=== PATIENT | female | born 1995 | race Caucasian/White ===

== ENCOUNTER 2019-05-09 10:47 | Emergency (ER) | payer OTHER ==
[2019-05-09 10:53] VITALS: BMI 32.5
[2019-05-09] MEDS ORDERED: LACTATED RINGERS SOLUTION 1000 ML INFUS.BAG IV ONE (11:21)
[2019-05-09] MEDS ORDERED: ACETAMINOPHEN 500 MG TABLET (FP) PO ONE (11:43)
--- NOTE | 2019-05-09 11:43 | PDOC ---
History of Present Illness - General History Source: Patient Exam Limitations: No Limitations - History of Present Illness Initial Comments: HPI: 23 y/o female presenting to [facility] ER complaining of lower abdominal and back pain for the past two days with recent fevers. Pain is described as intermittent and diffusely crampy. Right lower quadrant is more dull, while left lower quadrant is more sharp. Tmax 100.9 measured this morning. Further endorsing vaginal discharge change from clear to yellow yesterday. Pt is 14 weeks . Reports decreased movement over the past two days. Normal course to date. Normal ultrasound obtained 4 weeks ago. Follows with BRITTANY Luo for care. Pt is sexually active with single partner. Reports monogamous relationship. Feels safe at home and in relationship. OBGYN Hx: - A1, last complicated by preeclampsia diagnosed at 41 weeks - H/o of Chlamydia 4 years ago, reports receiving treatment - Denies abnormal PAP smear, last 4 weeks ago Medical Hx: - Mild intermittent asthma Surgical Hx: - Pt denies past surgical history. Review of Systems: In addition to that documented in the HPI above, the additional ROS was obtained : Constitutional: Endorses fevers. Denies diaphoresis or chills Head: Denies vision changes ENMT: Denies sore throat CV: Denies chest pain Resp: Denies SOB GI: Denies vomiting or diarrhea : Denies painful urination or hematuria MSK: Denies recent trauma Skin: Denies new rashes Neuro: Denies new numbness or tingling or weakness Endocrine: Denies polyuria Heme: Denies bleeding or bruising Physical Examination: Constitutional: Well-developed, well-nourished adult female in no acute distress but mild obvious discomfort. Found semi-fowlers on hospital bed. Alert and oriented x4. Answered all questions appropriately and completely. Speech was non-labored, non-pressured. Cardiovascular / Chest: Tachycardic rate with regular rhythm. No murmur, rubs, clicks, or gallops. Peripheral pulses: radial pulses full. No pretibial edema. Respiratory: Breathing unlabored. Equal chest rise and fall. Clear to auscultation bilaterally. No stridor, no wheezing, no rhonchi. Gastrointestinal: abdomen is tender in LLQ and RLQ without rebound or guarding. Globally, abdomen is soft and non-distended. No hepatosplenemegaly. No overlying skin lesions or obvious signs of trauma. Neuro: Alert and oriented. Moving all four extremities spontaneously. Gait normal. Skin: Warm, dry, and intact. : No R or L CVA tenderness. Psych: Affect: appropriate. Mood: normal. Female Pelvic: External genitalia unremarkable. Speculum exam with normal appearing whitish vaginal discharge. Vaginal wall mucosa is unremarkable. Cervix visualized and is unremarkable (closed in appearance without any protruding material). Bimanual exam with mild cervical motion tenderness (no chandelier sign), adnexal tenderness or any masses appreciated. Female MD chaperoned exam. MDM: *Reviewed vital signs, nursing notes, and prior visit documentation (if available). 23 y/o female at 14 weeks gestation presenting with fevers and abdominal pain x2 days. Afebrile in triage. Vitals remarkable for mild tachycardia without hypotension. HR improved after receiving PO Tylenol. Physical exam as described above. CBC unremarkable for leukocytosis. UA unremarkable for pyuria, nitrites, or leukocyte esterase. Urine culture, trichomoniasis, gonorrhea, and chlamydia amplification pending. Cervical culture pending. U/S revealed single IUP with HR of 150. Pt reported to ED attending that multiple members of her household were sick with URI symptoms, which she then endorsed. Suspect likely viral URI. Discussed imaging and laboratory results with pt. Answered all questions. Provided return precautions. Pt expressed verbal understanding and agreement with plan to discharge home with outpatient follow up tomorrow with weighmaster lead. Provided copies of todays results. Bertram Andres M.D., PGY2 Emergency Medicine Resident <Bertram Andres - Last Filed: 05/09/19 14:01> <Cecilio Montano - Last Filed: 05/09/19 16:42> - General Chief Complaint: Pain, Acute Stated Complaint: SIXTEEN WK AK/FEVER Time Seen by Provider: 05/09/19 11:07 Past History - Past Medical History Asthma: Yes COPD: No - Reproductive History Is Patient Now?: Yes (16 weeks) (#): 4 Para: 2 Therapeutic (s) & number: Yes (1) - Immunization History Immunization Up to Date: Yes - Suicide/Smoking/Psychosocial Hx Smoking History: Never smoked Hx Alcohol Use: No Drug/Substance Use Hx: No <Bertram Andres - Last Filed: 05/09/19 14:01> <Cecilio Montano - Last Filed: 05/09/19 16:42> - Past Medical History Allergies/Adverse Reactions: Allergies Allergy/AdvReac Type Severity Reaction Status Date / Time ceftriaxone [From Rocephin] Allergy Verified 05/09/19 10:50 vancomycin AdvReac Verified 05/09/19 10:50 Home Medications: Ambulatory Orders Pnv No.121/Iron/Folic Acid [ Multivitamin Tablet] 1 tab PO DAILY *Physical Exam - Vital Signs Last Vital Signs Temp Pulse Resp BP Pulse Ox 98.7 F 120 H 18 126/74 96 05/09/19 10:51 05/09/19 10:51 05/09/19 10:51 05/09/19 10:51 05/09/19 10:51 <Bertram Andres - Last Filed: 05/09/19 14:01> - Vital Signs Last Vital Signs Temp Pulse Resp BP Pulse Ox 99.8 F H 106 H 19 120/76 99 05/09/19 12:56 05/09/19 13:01 05/09/19 13:01 05/09/19 13:01 05/09/19 13:01 <Cecilio Montano - Last Filed: 05/09/19 16:42> ED Treatment Course - LABORATORY CBC & Chemistry Diagram: 05/09/19 11:36 05/09/19 11:36 - RADIOLOGY Radiology Studies Ordered: Category Date Time Status US(SINGLE) [US] Stat Ultrasound 05/09/19 11:20 Ordered <Bertram Andres - Last Filed: 05/09/19 14:01> - LABORATORY CBC & Chemistry Diagram: 05/09/19 11:36 05/09/19 11:36 - ADDITIONAL ORDERS Additional order review: Laboratory Results 05/09/19 05/09/19 05/09/19 11:36 11:36 11:36 Sodium 141 Potassium 3.8 Chloride 110 H Carbon Dioxide 22 Anion Gap 9 BUN 4.6 L Creatinine 0.4 L Est GFR (CKD-EPI)AfAm 170.15 Est GFR (CKD-EPI)NonAf 146.81 Random Glucose 80 Calcium 8.1 L Total Bilirubin 0.2 AST 16 ALT 15 Alkaline Phosphatase 78 Total Protein 6.6 Albumin 2.8 L Beta HCG, Quant 19492.9 Urine Color Yellow Urine Appearance Clear Urine pH 6.5 Ur Specific [place] 1.018 Urine Protein Negative Urine Glucose (UA) Negative Urine Ketones Negative Urine Blood Negative Urine Nitrite Negative Urine Bilirubin Negative Urine Urobilinogen 1.0 Ur Leukocyte Esterase Negative 05/09/19 11:36 RBC 4.22 MCV 78.2 L MCHC 33.7 RDW 15.6 MPV 9.4 Neutrophils % 77.3 Lymphocytes % 14.3 Monocytes % 7.6 Eosinophils % 0.4 Basophils % 0.4 - Medications Given in the ED: ED Medications Discontinued Medications Generic Name Dose Route Start Last Admin Trade Name Sadia PRN Reason Stop Dose Admin Acetaminophen 650 mg 05/09/19 11:43 05/09/19 11:58 Tylenol - PO 05/09/19 11:44 650 mg ONCE ONE Administration Lactated Ringer's 1,000 ml 05/09/19 11:21 05/09/19 11:58 Lactated Ringers Solution IV 05/09/19 11:22 1,000 ml ONCE ONE Administration <Cecilio Montano - Last Filed: 05/09/19 16:42> *DC/Admit/Observation/Transfer - Discharge Dispostion Decision to Admit order: No <Bertram Andres - Last Filed: 05/09/19 14:01> <Cecilio Montano - Last Filed: 05/09/19 16:42> Diagnosis at time of Disposition: Left lower quadrant abdominal pain affecting in first trimester Fever Qualifiers: Fever type: unspecified Qualified Code(s): R50.9 - Fever, unspecified - Discharge Dispostion Disposition: HOME Condition at time of disposition: Improved - Referrals Referrals: Kiera Muñoz DO [Primary Care Provider] - Mayra Luo CNM [Certified Nurse Speeder Operator] - - Patient Instructions Printed Discharge Instructions: DI for Fever (Symptom) -- Adult Additional Instructions: You were seen today for a fever and abdominal pain. Your baby looks perfectly healthy on ultrasound. Your blood work and urine tests were normal today. The last urine test will take a few days to result. The hospital will call you if the test is positive. Your symptoms today are likely caused by a viral illness. You can take over the counter Tylenol as needed for pain. Take as directed on the package insert. Do not exceed the recommended dosage. Follow up with your OBGYN tomorrow at the previously scheduled appointment. A copy of todays results are attached to this packet. Take it to the appointment so your doctor can review them. Go to the nearest emergency department if your condition worsens or you feel like you need additional emergency evaluation. Print Language: CITIZEN OF [place] - Post Discharge Activity Forms/Work/School Notes: Back to Work
[2019-05-09] MEDS ORDERED: ACETAMINOPHEN 325 MG TABLET (FP) ONE (11:54)
--- NOTE | 2019-05-09 12:09 | PDOC ---
Attending Attestation - Resident Resident Name: Bertram Andres - ED Attending Attestation I have performed the following: I have examined & evaluated the patient, The case was reviewed & discussed with the resident, I agree w/resident's findings & plan, Exceptions are as noted
[2019-05-09 12:33] LABS: BASO % 0.4 % (0-2.0); EOS % 0.4 % (0-4.5); HEMOGLOBIN 11.1 GM/dL (10.7-15.3); LYMPH % 14.3 % (8-40); MCH 26.4 pg (25.7-33.7); MCHC 33.7 g/dl (32.0-36.0); MEAN CELL VOLUME 78.2 fl (80-96); MEAN PLT VOLUME 9.4 fl (7.5-11.1); MONO % 7.6 % (3.8-10.2); NEUT % 77.3 % (42.8-82.8); PLATELET COUNT 210 K/MM3 (134-434); RBC 4.22 M/mm3 (3.60-5.2); RDW 15.6 % (11.6-15.6); WHITE BLOOD COUNT 5.5 K/mm3 (4.0-10.0)
[2019-05-09 12:50] LABS: ALBUMIN 2.8 g/dl (3.4-5.0); BILIRUBIN,TOTAL 0.2 mg/dL (0.2-1); BLOOD UREA NITROGEN 4.6 mg/dL (7-18); CALCIUM 8.1 mg/dL (8.5-10.1); CREATININE 0.4 mg/dL (0.55-1.3); PH,URINE 6.5 (5.0-8.0); POTASSIUM 3.8 mmol/L (3.5-5.1); TOT PROT 6.6 g/dl (6.4-8.2); URINE APPEARANCE CLEAR; URINE BILIRUBIN NEGATIVE (NEGATIVE); URINE COLOR YELLOW; URINE GLUCOSE (UA) NEGATIVE (NEGATIVE); URINE KETONE NEGATIVE (NEGATIVE); URINE LEUK ESTERASE NEGATIVE (NEGATIVE); URINE NITRITE NEGATIVE (NEGATIVE); URINE PROTEIN NEGATIVE (NEGATIVE)
[2019-05-09 12:56] VITALS: TEMP 99.8
[2019-05-09 13:01] VITALS: BP 120/76; PULSE 106
--- NOTE | 2019-05-09 16:45 | PDOC ---
Documentation entered by Lindsay Domingo SCRIBE, acting as scribe for Cecilio Montano MD. Cecilio Montano MD: This documentation has been prepared by the Jose L bedoya Renju, SCRIBE, under my direction and personally reviewed by me in its entirety. I confirm that the documentation accurately reflects all work, treatment, procedures, and medical decision making performed by me. Attending Attestation - Resident Resident Name: Bertram - ED Attending Attestation I have performed the following: I have examined & evaluated the patient, The case was reviewed & discussed with the resident, I agree w/resident's findings & plan, Exceptions are as noted - HPI HPI: 05/09/19 14:23 The patient is a 23 year old A1 female who presents to the emergency department for evaluation of a 2 day history of rhinorrhea, cough, and fever. Patient states her youngest son was diagnosed with pneumonia last week and similar symptoms of rhinorrhea and fever. Patient reports a fever with tmax of 100.9 last night. She states her other son had a fever last week as well. Denies recent travel. Patient reports intermittent lower abdominal pain which she describes as a pressure. She states she has an OBGYN appointment next week. Patient states she is in a monogamous relationship. Denies chest pain, shortness of breath, headache, and dizziness. Denies fevers, chills, nausea, and vomiting. Allergies: Ceftriaxone, vancomycin Social History: No reported alcohol, cigarette, or drug use. - Physicial Exam PE: 05/09/19 14:23 ROS: A complete review of 10 out of 10 review of systems is taken and is negative apart from what is previously mentioned below and in the HPI. Physical Exam: Vitals: Triage Vital signs reviewed General Appearance: no acute distress, well nourished well developed, Head: Atraumatic, Eyes: Pupils equal reactive round, extraocular movement intact Neck: Supple; Chest Wall: Nontender Cardiac: Regular rate and rhythm, no murmurs, no rubs, no gallops, Lungs: Clear to auscultation bilaterally, good air movement bilaterally, Abdomen: Soft, non distended, normal bowel sounds, non tender to palpation Extremities: Full range of motion to all extremities, no cyanosis, clubbing, or edema Skin: Warm and dry, no rashes or lesions, no rash, no petechiae Neuro: Strength intact to all extremities, Sensation intact to all extremities, gait normal Psych: normal mood, normal affect - Medical Decision Making 05/09/19 16:45 23 years old with fever 2 days. Both the for children were sick at home with similar illnesses she has had some crampy lower abdominal discomfort for 2 days comes and goes intermittent not constant Her urinalysis was unremarkable. She had no elevated white blood cell count no shift. Her physical examination was unremarkable she had no rebound or guarding and no pain on my abdominal examination Given that her children have had the exact same febrile illness she does endorse runny nose and coughing this is most likely viral illness my suspicion for an acute surgical intra-abdominal process at this time given normal abdominal examination normal pelvic examination is low however we did discuss very strict abdominal pain return instructions. She'll return to ED for any severe persistent constant abdominal pain or for any concerns otherwise she has a follow-up appointment tomorrow with her ASSISTANT PROFESSOR OF FORESTRY. Findings, the need for follow-up and strict return instructions discussed with patient.
== END 2019-05-09 13:42 | disposition home or self-care (01) ==
LOC: JER 10:47
DX: O26.892 Other specified pregnancy related conditions, second trimester (principal); R50.9 Fever, unspecified; R10.32 Left lower quadrant pain; Z3A.16 16 weeks gestation of pregnancy
CPT/HCPCS: 36415; 76801-TC; 80053; 81003; 84702; 85025; 87086; 87491; 87591; 87661; 99283-25

== ENCOUNTER → 2019-05-29 | Day surgery (SDC) | payer OTHER ==
--- NOTE | 2019-05-30 16:12 | PATH ---
Surgical Pathology Report Patient Name: ANNA CHURCH [facility]. Rec. #: [id number] /Age/Gender: 1995 (Age: 23) / F Account: [id number] Location: Taken: 05/29/2019 Received: 05/29/2019 Reported: 05/30/2019 Physicians: Consuelo Ruiz M.D. Specimen(s) Received BREAST CORE BIOPSY LEFT 11:00 RETRO Clinical History Palpable mass Postoperative diagnosis: Probably benign, suspicious Final Diagnosis LEFT BREAST, 11:00 RETRO, 1.6 CM MASS, ULTRASOUND GUIDED BIOPSY: BENIGN BREAST TISSUE WITH SECRETORY CHANGE. Electronically Signed Belen Salmeron M.D. Gross Description Received in formalin labeled "left 11:00 retro," are 5 goode-yellow, cylindrical portions of fibroadipose tissue ranging from 0.3-1.3 cm in length and averaging 0.1 cm in diameter. The specimens are submitted in toto in one cassette. Time to formalin fixation: Less than one minute Total formalin fixation time: Approximately 6 hours. /05/29/2019 [facility]
== END | disposition home or self-care (01) ==
LOC: JMAMMO-SUR 12:10
PROVIDERS: ATTEND Midwife
PROC: 0HBU3ZX Excision of Left Breast, Percutaneous Approach, Diagnostic (ICD-10-PCS; principal; 2019-05-29)
DX: O92.29 Other disorders of breast associated with pregnancy and the puerperium (principal); D24.2 Benign neoplasm of left breast; Z3A.19 19 weeks gestation of pregnancy
CPT/HCPCS: 19083; 87899; 88305-TC; A4648

== ENCOUNTER 2019-09-09 10:40 | Emergency (ER) | payer OTHER ==
[2019-09-09 10:51] VITALS: BP 113/63; PULSE 110; TEMP 98.1; BMI 36.2
[2019-09-09] MEDS ORDERED: diphenhydrAMINE HCL 25 MG CAPSULE (FP) PO ONE ×2 (11:32→12:41)
[2019-09-09] MEDS ORDERED: ACETAMINOPHEN 500 MG TABLET (FP) PO ONE (11:32)
[2019-09-09] MEDS ORDERED: guaiFENesin 200 MG/10 ML 10 ML UNIT-DOSE CUPS PO ONE (11:33)
[2019-09-09] MEDS ORDERED: ACETAMINOPHEN 325 MG TABLET (FP) ONE (12:41)
[2019-09-09] MEDS ORDERED: guaiFENesin 200 MG/10 ML 10 ML UNIT-DOSE CUPS ONE (12:41)
--- NOTE | 2019-09-09 12:51 | PDOC ---
History of Present Illness - General History Source: Patient Exam Limitations: No Limitations - History of Present Illness Initial Comments: 09/09/19 11:46 23-year-old female presents to ED with complaints of nasal congestion, headache , sore throat and cough. Patient states has taken nothing for the above and decided come to the ER for evaluation since she is currently 34 weeks and has history of preeclampsia. Patient has no complaints of abdominal pain, back pain, urinary complaints or vaginal discharge. Is this a multiple visit Asthma Patient?: No Timing/Duration: 24 hours Severity: mild Associated Symptoms: reports: cough, headaches, loss of appetite. denies: fever /chills, malaise, nausea/vomiting, rash, weakness <Adriana Jacob - Last Filed: 09/09/19 13:20> <Makenzie Jean Baptiste - Last Filed: 09/09/19 16:00> - General Chief Complaint: Pain Stated Complaint: COLD SYMPTOMS Time Seen by Provider: 09/09/19 11:26 Past History - Travel Traveled outside of the country in the last 30 days: No Close contact w/someone who was outside of country & ill: No - Past Medical History Asthma: Yes COPD: No Other medical history: pre eclampsia - Reproductive History (#): 4 Para: 2 Therapeutic (s) & number: Yes (1) - Immunization History Immunization Up to Date: Yes - Psycho Social/Smoking Cessation Hx Smoking History: Never smoked Hx Alcohol Use: No Drug/Substance Use Hx: No Patient Lives Alone: No Lives with/in: spouse/SO <Adriana Jacob - Last Filed: 09/09/19 13:20> <Makenzie Jean Baptiste - Last Filed: 09/09/19 16:00> - Past Medical History Allergies/Adverse Reactions: Allergies Allergy/AdvReac Type Severity Reaction Status Date / Time ceftriaxone [From Rocephin] Allergy Verified 09/09/19 10:47 vancomycin AdvReac Verified 09/09/19 10:47 Home Medications: Ambulatory Orders Pnv No.121/Iron/Folic Acid [ Multivitamin Tablet] 1 tab PO DAILY Acetaminophen [Tylenol -] 1,000 mg PO TID PRN #30 tablet 09/09/19 Diphenhydramine HCl [Benadryl -] 25 mg PO Q8H PRN #21 capsule 09/09/19 Guaifenesin [Robitussin] 10 ml PO TID PRN #120 ml 09/09/19 Review of Systems - Review of Systems Able to Perform ROS?: No Is the patient limited [place] proficient: No Constitutional: No: Symptoms Reported HEENTM: Yes: Nose Congestion, Throat Pain Respiratory: Yes: Cough. No: Shortness of Breath Cardiac (ROS): No: Symptoms Reported ABD/GI: No: Symptoms Reported : No: Symptoms Reported Musculoskeletal: No: Symptoms Reported Integumentary: No: Symptoms Reported Neurological: Yes: Headache. No: Tingling, Tremors, Weakness, Dizziness Endocrine: No: Symptoms Reported Hematologic/Lymphatic: No: Symptoms Reported <Adriana Jacob - Last Filed: 09/09/19 13:20> *Physical Exam - Vital Signs Last Vital Signs Temp Pulse Resp BP Pulse Ox 98.1 F 110 H 18 113/63 97 09/09/19 10:47 09/09/19 10:47 09/09/19 10:47 09/09/19 10:47 09/09/19 10:47 - Physical Exam General Appearance: Yes: Nourished, Appropriately Dressed. No: Apparent Distress HEENT: positive: Nasal Congestion, Sinus Tenderness (maxillary). negative: Pale Conjunctivae, Rhinorrhea Neck: positive: Supple Respiratory/Chest: positive: Lungs Clear, Normal Breath Sounds. negative: Respiratory Distress, Accessory Muscle Use, Wheezing Gastrointestinal/Abdominal: positive: Soft. negative: Tenderness Integumentary: positive: Normal Color, Warm, Moist Neurologic: positive: Motor Strength 5/5 (ambulatory) <Adriana Jacob - Last Filed: 09/09/19 13:20> - Vital Signs Last Vital Signs Temp Pulse Resp BP Pulse Ox 98.1 F 110 H 18 113/63 97 09/09/19 10:47 09/09/19 10:47 09/09/19 10:47 09/09/19 10:47 09/09/19 10:47 <Makenzie Jean Baptiste - Last Filed: 09/09/19 16:00> ED Treatment Course - Medications Given in the ED: ED Medications Discontinued Medications Generic Name Dose Route Start Last Admin Trade Name Freq PRN Reason Stop Dose Admin Acetaminophen 975 mg 09/09/19 11:32 09/09/19 12:52 Tylenol - PO 09/09/19 11:33 975 mg ONCE ONE Administration Diphenhydramine HCl 25 mg 09/09/19 11:32 09/09/19 12:53 Benadryl - PO 09/09/19 11:33 25 mg ONCE ONE Administration Guaifenesin 10 ml 09/09/19 11:33 09/09/19 12:52 Robitussin - PO 09/09/19 11:34 10 ml ONCE ONE Administration <Makenzie Jean Baptiste - Last Filed: 09/09/19 16:00> Medical Decision Making - Medical Decision Making 09/09/19 12:00 Chief complaint: Patient with nasal congestion, headache, sore throat and cough for the past day. Patient took no medications and was concerned since she is 34 weeks and has history of preeclampsia. Patient has no complaints of lower extremity edema, chest pain, shortness of breath, or a recorded elevated BP reading for this Exam: Patient noted nasal congestion maxillary tenderness,. Lungs clear to auscultation vital signs stable except for slightly tachycardic. Patient states has had poor p.o. fluid intake Plan: Robitussin, Tylenol, Benadryl along with 2 cups of water given to patient 09/09/19 13:20 Patient's heart rate remains 106-108. We will add influenza and strep and call with results. Prescription sent. Pt states feeling better <Adriana Jcaob - Last Filed: 09/09/19 13:20> - Medical Decision Making The patient was seen and evaluated in conjunction with midlevel provider under my direct supervision, ancillary studies were reviewed. I agree with the plan as outlined with VONNIE Jacob. HPI, workup/dispo as outlined. VS reviewed, mild tachycardi, afebrile, normotensive. flu test. strep test anticipate discharge, pcp followup, return precautions 09/09/19 16:00 <Makenzie Jean Baptiste - Last Filed: 09/09/19 16:00> Discharge - Discharge Information Problems reviewed: Yes <Adriana Jacob - Last Filed: 09/09/19 13:20> <Makenzie Jean Baptiste - Last Filed: 09/09/19 16:00> - Discharge Information Clinical Impression/Diagnosis: Nasal congestion, Cough, Sneezing - Additional Discharge Information Prescriptions: Acetaminophen [Tylenol -] 1,000 mg PO TID PRN #30 tablet PRN Reason: Headache Diphenhydramine HCl [Benadryl -] 25 mg PO Q8H PRN #21 capsule PRN Reason: For Itching Guaifenesin [Robitussin] 10 ml PO TID PRN #120 ml PRN Reason: Cough
--- NOTE | 2019-09-11 10:59 | EKG ---
Test Reason : Blood Pressure : / mmHG Vent. Rate : 106 BPM Atrial Rate : 106 BPM P-R Int : 130 ms QRS Dur : 082 ms QT Int : 344 ms P-R-T Axes : 029 026 009 degrees QTc Int : 456 ms SINUS TACHYCARDIA OTHERWISE NORMAL ECG NO PREVIOUS ECGS AVAILABLE Confirmed by CESARIO AMADOR MD ([id number]) on 09/11/2019 10:59:24 AM Referred By: Confirmed By:CESARIO AMADOR MD
== END 2019-09-09 14:30 | disposition home or self-care (01) ==
LOC: JERFT 10:40 → JER 10:40
DX: O99.89 Other specified diseases and conditions complicating pregnancy, childbirth and the puerperium (principal); R05 Cough; R09.81 Nasal congestion; R06.7 Sneezing; Z3A.34 34 weeks gestation of pregnancy; Z87.59 Personal history of other complications of pregnancy, childbirth and the puerperium
CPT/HCPCS: 87070; 87804; 87880; 93005; 93010; 99282-25

== ENCOUNTER 2019-10-24 12:27 | Inpatient (IN) | payer OTHER ==
[2019-10-24] MEDS: DEXTROSE 5%-LACTATED RINGERS 1,000 ML IV SCH (14:00)
[2019-10-24 15:21] VITALS: BMI 35.9
[2019-10-24 15:55] LABS: BASO % 0.2 % (0-2.0); EOS % 0.8 % (0-4.5); HEMATOCRIT 36.3 % (32.4-45.2); HEMOGLOBIN 12.3 GM/dL (10.7-15.3); MCH 26.5 pg (25.7-33.7); MCHC 33.9 g/dl (32.0-36.0); MEAN CELL VOLUME 78.3 fl (80-96); MEAN PLT VOLUME 8.9 fl (7.5-11.1); MONO % 5.2 % (3.8-10.2); NEUT % 66.8 % (42.8-82.8); PLATELET COUNT 301 K/MM3 (134-434); RBC 4.64 M/mm3 (3.60-5.2); RDW 18.9 % (11.6-15.6); WHITE BLOOD COUNT 6.1 K/mm3 (4.0-10.0)
[2019-10-24 16:14] LABS: CALCIUM 8.7 mg/dL (8.5-10.1); CREATININE 0.5 mg/dL (0.55-1.3); POTASSIUM 4.1 mmol/L (3.5-5.1)
[2019-10-24 16:17] LABS: INR 1.04 (0.83-1.09); PROTHROMBIN TIME (PATIENT) 12.3 SEC (9.7-13.0)
[2019-10-24 16:20] LABS: ACTIVATED PTT 35.4 SECONDS (25.2-36.5)
--- NOTE | 2019-10-24 19:26 | PN ---
Progress Note (short form) - Note Progress Note: cx 3 cm 80 vx -3 mr, clear , fhr cat 1, irregular contraction , advised pitocin , rba discussed
[2019-10-24] MEDS ORDERED: OXYTOCIN 30 UNITS in 0.9% NS 30 UNIT/500 ML INFUS.BAG IVPB ONE (19:28)
[2019-10-24] MEDS ORDERED: BUTORPHANOL TARTRATE 1 MG/ML VIAL IVPUSH ONE (19:28)
[2019-10-24] MEDS ORDERED: PROMETHAZINE HCL 25 MG/1 ML VIAL IVPUSH ONE (19:28)
--- NOTE | 2019-10-24 19:29 | HP ---
Past Medical History - Primary Care Physician PCP:: Pawel Hoffman - Admission Chief Complaint: 40 weeks , rom , early labor History of Present Illness: 23 yo f 0 2 2 40 weeks c/o leaking fluid and bloody discharge since 12 noon today , has low abdominal cramps , no fever , cx 2 cm 70 vx -3 mr, clear fluid . nitrazine positive . fhr cat 1, with irregular contraction History Source: Patient Limitations to Obtaining History: No Limitations - Past Medical History ...: 5 ...Para: 2 ...Term: 2 ...: 0 ...Spon : 0 ...Induced : 2 ...Multiple Gestation: 0 ...LMP: 12/20/18 ...EDC by Sono: 10/23/19 - Past Surgical History Hx Myomectomy: No Hx Transabdominal Cerclage: No - Smoking History Smoking history: Never smoked - Alcohol/Substance Use Hx Alcohol Use: No Home Medications - Allergies Allergies/Adverse Reactions: Allergies Allergy/AdvReac Type Severity Reaction Status Date / Time ceftriaxone [From Rocephin] Allergy Severe Rash Verified 10/24/19 13:56 vancomycin Allergy Severe Itching Verified 10/24/19 13:56 - Home Medications Home Medications: Ambulatory Orders Pnv No.121/Iron/Folic Acid [ Multivitamin Tablet] 1 tab PO DAILY Ferrous Sulfate [Iron] 1 tab PO DAILY 10/24/19 Nitrofurantoin Monohyd/M-Cryst [Macrobid -] 1 cap PO DAILY 10/24/19 Review of Systems - Review of Systems Constitutional: reports: No Symptoms Eyes: reports: No Symptoms HENT: reports: No Symptoms Neck: reports: No Symptoms Cardiovascular: reports: No Symptoms Respiratory: reports: No Symptoms Gastrointestinal: reports: No Symptoms Genitourinary: reports: No Symptoms Breasts: reports: No Symptoms Reported Musculoskeletal: reports: No Symptoms Integumentary: reports: No Symptoms Neurological: reports: No Symptoms Endocrine: reports: No Symptoms Hematology/Lymphatic: reports: No Symptoms Psychiatric: reports: No Symptoms Physical Exam - Maternity Vital Signs: Vital Signs Temperature 98.6 F 10/24/19 18:00 Pulse Rate 82 10/24/19 18:00 Respiratory Rate 18 10/24/19 18:00 Blood Pressure 124/72 10/24/19 18:00 O2 Sat by Pulse Oximetry (%) Constitutional: Yes: Well Nourished, No Distress, Calm Eyes: Yes: WNL, Conjunctiva Clear, EOM Intact HENT: Yes: WNL, Atraumatic, Normocephalic Neck: Yes: WNL, Supple, Trachea Midline Cardiovascular: Yes: WNL, Regular Rate and Rhythm Breast(s): Yes: WNL - Abdominal Exam/OB Fundal Height: 40 Number of Fetuses: Single Presentation: Vertex Contractions: Yes Regularity: Irregular Intensity: Mild/Mod Monitor Mode: External Heart Rate Location: [facility] Category: I Accelerations: Non-Uniform Decelerations: None - Vaginal Exam/OB Vaginal Bleediing: Bloody Show Speculum Exam: No Dilatation (cm): 2 cm Effacement (%): 70 Amniotic Membrane Status: Leaking Nitrazine Test: Positive Presentation: Vertex/Position Station: -3 - Physical Exam Musculoskeletal: Yes: WNL Extremities: Yes: WNL Edema: LLE: Trace, RLE: Trace Psychiatric: Yes: WNL - Labs Lab Results: CBC, BMP 10/24/19 14:30 10/24/19 14:30 Hemorrhage Risk Assessment - Risk Factors Medium Risk Factors: Yes: None High Risk Factors: Yes: None Risk Score: 1 Risk Level: Medium Risk Problem List - Problems (1) Post term over 40 weeks Code(s): O48.0 - POST-TERM (2) membrane rupture Code(s): KUE5269 - Assessment/Plan admit , fhm GBS negative pain management if contraction no regular may benefit from pitocin stimulation
[2019-10-24] MEDS ORDERED: OXYTOCIN 30 UNITS in 0.9% NS 30 UNIT/500 ML INFUS.BAG IVPB SCH (19:30)
[2019-10-25] MEDS ORDERED: BUTORPHANOL TARTRATE 1 MG/ML VIAL ONE ×2 (01:27)
[2019-10-25] MEDS ORDERED: PROMETHAZINE HCL 25 MG/1 ML VIAL ONE (01:27)
--- NOTE | 2019-10-25 05:14 | PN ---
Progress Note (short form) - Note Progress Note: cx 4 cm 80 vx -2 mr, fhr cat 1, irregular contraction Problem List - Problems (1) Post term over 40 weeks Code(s): O48.0 - POST-TERM (2) membrane rupture Code(s): [id number] -
[2019-10-25] MEDS ORDERED: AMPICILLIN SODIUM 2 GM VIAL ONE (06:33)
[2019-10-25] MEDS ORDERED: CLINDAMYCIN 900 MG PREMIX IVPB 900 MG/50 ML BAG IVPB ONE (07:00)
[2019-10-25] MEDS ORDERED: FENTANYL/BUPIVACAINE/NS/PF - PCEA - 50 ML DISP.SYRIN EP ONE (07:46)
[2019-10-25] MEDS ORDERED: NALOXONE HCL 0.4 MG/ML VIAL IVPUSH PRN (07:47)
[2019-10-25] MEDS ORDERED: LIDO 2%/EPI 1:200000 PRESRVFRE (20 ML SDVIAL) ONE (07:50)
[2019-10-25] MEDS ORDERED: CLINDAMYCIN PHOSPHATE 600 MG/4 ML VIAL ONE (07:53)
[2019-10-25] MEDS ORDERED: ELECTROLYTE-148 SOLN 1,000 ML IV SCH (08:00)
[2019-10-25] MEDS: FENTANYL/BUPIVACAINE/NS/PF - PCEA - 50 ML DISP.SYRIN EP SCH (08:05)
[2019-10-25 08:52] LABS: POC NITRAZINE POS
[2019-10-25] MEDS ORDERED: LIDOCAINE HCL 1% PRESERVATIVE FREE - 30ML VIAL ONE (10:30)
[2019-10-25] MEDS ORDERED: OXYTOCIN 20 UNITS in 0.9% NS 20 UNIT/1,000 ML INFUS.BAG IV ONE ×2 (10:30→17:32)
[2019-10-25] MEDS: OXYTOCIN 20 UNITS in 0.9% NS 20 UNIT/1,000 ML INFUS.BAG IV SCH ×2 (11:00→17:33)
[2019-10-25] MEDS ORDERED: BISACODYL 10 MG SUPP.RECT RC PRN (11:17)
[2019-10-25] MEDS ORDERED: BENZOCAINE 20% 57 GM BOTTLE TP PRN (11:17)
[2019-10-25] MEDS ORDERED: WITCH HAZEL 50% (TUCKS) 40 PAD/JAR PAD TP PRN (11:17)
[2019-10-25] MEDS ORDERED: BENZOCAINE 28 GM HEMORRHOIDAL OINTMENT TP PRN (11:17)
[2019-10-25] MEDS ORDERED: METHYLERGONOVINE MALEATE 0.2 MG/1 ML AMP IM PRN (11:17)
--- NOTE | 2019-10-25 11:25 | PN ---
Delivery - Delivery Vaginal Delivery: Spontaneous Type of Anesthesia: Epidural Episiotomy/Laceration: 1st degree (head delivered, naso pharynx suctioned , ant and post shoulder with nodifficulty , live baby girl 9/o , bonded with mpm , placenta complete , first degree laceration sutured with 2 interupted 20 chromic , ebl 300 cc, no complication) Delivery, Single - Feeding Plan Initial Plan: Exclusive throughout hospitalization
[2019-10-25] MEDS ORDERED: D5W-LR W/ 20 UNITS OXYTOCIN 1,000 ML IV SCH (11:30)
[2019-10-25] MEDS: CLINDAMYCIN 600MG PREMIX IVPB 600 MG/50 ML BAG IVPB SCH ×2 (13:35→19:00)
[2019-10-25] MEDS ORDERED: IBUPROFEN 600 MG TABLET (FP) PO ONE ×2 (13:47→17:46)
[2019-10-25] MEDS ORDERED: ACETAMINOPHEN 325 MG TABLET (FP) ONE ×2 (13:47→17:46)
[2019-10-25] MEDS: ACETAMINOPHEN 325 MG TABLET (FP) PO PRN ×2 (13:55→17:49)
[2019-10-25] MEDS: IBUPROFEN 600 MG TABLET (FP) PO PRN ×2 (13:55→17:48)
[2019-10-25] MEDS: DEXTROSE 5%-LACTATED RINGERS 1,000 ML IV SCH (17:51)
[2019-10-25] MEDS: FERROUS SO4 325 MG TABLET (FP) PO SCH (21:56)
[2019-10-26] MEDS: CLINDAMYCIN 600MG PREMIX IVPB 600 MG/50 ML BAG IVPB SCH ×2 (01:42→09:06)
--- NOTE | 2019-10-26 06:31 | PN ---
Post Progress Note - Subjective Subjective: Pain controlled. Ambulating. No fevers/chills. Post Day: 1 Type of Delivery: Vital Signs: Vital Signs Temperature 98.0 F 10/26/19 05:51 Pulse Rate 78 10/26/19 05:51 Respiratory Rate 20 10/26/19 05:51 Blood Pressure 138/77 10/26/19 05:51 O2 Sat by Pulse Oximetry (%) 97 10/25/19 11:15 Uterus: Yes: Fundus below umbilicus Incision: Yes: Dressing dry and intact Abdomen/GI: Yes: Abdomen soft, Passing flatus, Tolerating PO Lochia: Yes: Rubra Lochia, amount: Small Extremities: Yes: Calves non-tender Perineum: Yes: Episiotomy Activity: Ambulating - Labs Labs: CBC WBC 6.1 K/mm3 (4.0-10.0) 10/24/19 14:30 RBC 4.64 M/mm3 (3.60-5.2) 10/24/19 14:30 Hgb 12.3 GM/dL (10.7-15.3) 10/24/19 14:30 Hct 36.3 % (32.4-45.2) 10/24/19 14:30 MCV 78.3 fl (80-96) L 10/24/19 14:30 MCH 26.5 pg (25.7-33.7) 10/24/19 14:30 MCHC 33.9 g/dl (32.0-36.0) 10/24/19 14:30 RDW 18.9 % (11.6-15.6) H 10/24/19 14:30 Plt Count 301 K/MM3 (134-434) D 10/24/19 14:30 MPV 8.9 fl (7.5-11.1) 10/24/19 14:30 Absolute Neuts (auto) 4.0 K/mm3 (1.5-8.0) 10/24/19 14:30 Neutrophils % 66.8 % (42.8-82.8) 10/24/19 14:30 Neutrophils % (Manual) 70.3 % (42.8-82.8) 10/24/19 14:30 Band Neutrophils % 0.0 % 10/24/19 14:30 Lymphocytes % 27.0 % (8-40) D 10/24/19 14:30 Lymphocytes % (Manual) 18.8 % (8-40) 10/24/19 14:30 Monocytes % 5.2 % (3.8-10.2) 10/24/19 14:30 Monocytes % (Manual) 2 % (3.8-10.2) L 10/24/19 14:30 Eosinophils % 0.8 % (0-4.5) D 10/24/19 14:30 Eosinophils % (Manual) 1.0 % (0-4.5) 10/24/19 14:30 Basophils % 0.2 % (0-2.0) 10/24/19 14:30 Basophils % (Manual) 0.0 % (0-2.0) 10/24/19 14:30 Myelocytes % (Man) 5 % (0-2) H 10/24/19 14:30 Promyelocytes % (Man) 0 % (0-2) 10/24/19 14:30 Blast Cells % (Manual) 0 % (0-0) 10/24/19 14:30 Nucleated RBC % 0 % (0-0) 10/24/19 14:30 Metamyelocytes 1 % (0-2) 10/24/19 14:30 Assessment/Plan 23yo s/p , PPD#1 Routine PP care PO pain control Labs pending D/C to home PPD#2 Jose Luis Adair MD
[2019-10-26 08:15] LABS: BASO % 0.6 % (0-2.0); EOS % 1.1 % (0-4.5); HEMATOCRIT 34.8 % (32.4-45.2); HEMOGLOBIN 11.7 GM/dL (10.7-15.3); LYMPH % 31.7 % (8-40); MCH 26.7 pg (25.7-33.7); MCHC 33.6 g/dl (32.0-36.0); MEAN CELL VOLUME 79.5 fl (80-96); MEAN PLT VOLUME 8.7 fl (7.5-11.1); MONO % 6.3 % (3.8-10.2); NEUT % 60.3 % (42.8-82.8); PLATELET COUNT 268 K/MM3 (134-434); RBC 4.38 M/mm3 (3.60-5.2); RDW 18.9 % (11.6-15.6); WHITE BLOOD COUNT 8.7 K/mm3 (4.0-10.0)
[2019-10-26] MEDS: FENTANYL/BUPIVACAINE/NS/PF - PCEA - 50 ML DISP.SYRIN EP SCH (09:09)
[2019-10-26] MEDS: PRENATAL VITAMINS W/ FOLIC ACID TABLET (FP) PO SCH (10:03)
[2019-10-26] MEDS: FERROUS SO4 325 MG TABLET (FP) PO SCH ×2 (10:03→21:55)
[2019-10-26] MEDS ORDERED: SENNOSIDES/DOCUSATE COMBO (SENNA PLUS) TABLET (UD) PO PRN (22:00)
[2019-10-27] MEDS: ACETAMINOPHEN 325 MG TABLET (FP) PO PRN (08:25)
[2019-10-27] MEDS: IBUPROFEN 600 MG TABLET (FP) PO PRN (08:25)
[2019-10-27 09:25] VITALS: BP 125/84; PULSE 89; TEMP 97.6
[2019-10-27] MEDS: FERROUS SO4 325 MG TABLET (FP) PO SCH (10:11)
[2019-10-27] MEDS: PRENATAL VITAMINS W/ FOLIC ACID TABLET (FP) PO SCH (10:12)
--- NOTE | 2019-10-27 11:25 | DS ---
Physical Exam-[facility] Vital Signs: Vital Signs Temperature 97.6 F 10/27/19 09:18 Pulse Rate 89 10/27/19 09:18 Respiratory Rate 20 10/27/19 09:18 Blood Pressure 125/84 10/27/19 09:18 O2 Sat by Pulse Oximetry (%) 97 10/25/19 11:15 Constitutional: Yes: Well Nourished, Other (c/o cramps) Eyes: Yes: WNL HENT: Yes: WNL Neck: Yes: WNL Cardiovascular: Yes: WNL Respiratory: Yes: WNL Gastrointestinal: Yes: WNL Renal/: Yes: WNL ....Post : Yes: Uterus firm (below umblicus), Uterus non-tender, Moderate lochia rubra (perineum intact) Breast(s): Yes: WNL (BF , soft) Musculoskeletal: Yes: WNL Extremities: Yes: WNL. 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 Present: No Gender: Female Weight: 8 lb 6 oz Position: Left, OA Total Hours ROM (Hrs/Mins): 27 hours and 57 minutes - 1 Minute Total Score: 9 5 Minutes Total Score: 9 - [place] Feeding Plan Initial Plan: Exclusive throughout hospitalization Remarks - Remarks Remarks: stable discharge today Discharge Summary Problems reviewed: Yes Reason For Visit: LABOR ADMISSION Current Active Problems membrane rupture (Acute) Normal spontaneous vaginal delivery (Acute) Post term over 40 weeks (Acute) Condition: Stable - Instructions Diet, Activity, Other Instructions: Regular Diet Follow up in 3 weeks for your visit Referrals: Jennifer Adair MD [Staff Physician] - Disposition: HOME - Home Medications Comprehensive Discharge Medication List: Ambulatory Orders Pnv No.121/Iron/Folic Acid [ Multivitamin Tablet] 1 tab PO DAILY Ferrous Sulfate [Iron] 1 tab PO DAILY 10/24/19 Nitrofurantoin Monohyd/M-Cryst [Macrobid -] 1 cap PO DAILY 10/24/19 Ibuprofen 600 mg PO Q6H PRN #30 tablet 10/26/19
== END 2019-10-27 13:25 | disposition home or self-care (01) | DRG 560 ==
LOC: JDEL 12:27 → JLDR 13:55 → J3W 10-25 17:55
PROVIDERS: ADMIT Obstetrics & Gynecology; ATTEND Obstetrics & Gynecology
PROC: 0HQ9XZZ Repair Perineum Skin, External Approach (ICD-10-PCS; principal; 2019-10-25)
PROC: 10E0XZZ Delivery of Products of Conception, External Approach (ICD-10-PCS; 2019-10-25)
DX: O48.0 Post-term pregnancy (principal); O70.0 First degree perineal laceration during delivery; Z3A.40 40 weeks gestation of pregnancy; Z37.0 Single live birth
CPT/HCPCS: 36415; 36600; 59409; 80048; 82803; 83986-QW; 85025; 85610; 85730; 86593; 86850; 86900; 86901